=== PATIENT | male | born 1985 | race African-American/Black ===

== ENCOUNTER 2018-07-23 23:41 | Emergency (ER) | payer OTHER ==
[~2018-07-23] VITALS: Ht 180.3 cm; Wt 67.1 kg
[2018-07-24] MEDS ORDERED: Bacitracin Oint UD TOPIC ONE (00:15)
[2018-07-24] MEDS ORDERED: Lidocaine 1% MPF 10mg/ml 5ml INJ ONE (00:15)
--- NOTE | 2018-07-24 00:17 | NUR ---
ED Nurse Note: Received report. Pt from home, AAOx4, ambulatory, c/o right finger pain after picking up wine glass and it breaking in his hand. Will assess and carryout ER MD's orders.
[2018-07-24 00:18] VITALS: BP 118/76
--- NOTE | 2018-07-24 01:13 | Emergency Room Report ---
History of Present Illness General Chief Complaint: Laceration Source: Patient Present Illness HPI The patient presents with laceration of his finger. 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 Glass broke and he cut his fingertip. He wrapped it and continued his shift and now is presented after shift is over a period the bleeding was controlled with the dressing. This happened at 2130. The finger involved is his right index finger. The patient is right-handed. His tetanus is up-to-date. Patient denies any numbness or change in range of motion. The pain is rated 5/10 at this time. It's sharp pain nonradiating. Patient denies diabetes or other medical problems. Allergies: Coded Allergies: No Known Allergies (Unverified , 07/24/18) Patient History Past Medical History: see triage record Social History: Denies: smoking - Former smoker Social History Narrative retrofit installer Reviewed Nursing Documentation: PMH: Agreed; PSxH: Agreed Review of Systems Constitutional: Denies: fever Musculoskeletal: Reports: see HPI Skin: Reports: see HPI Neurological: Reports: see HPI Hematologic/Lymphatic: Reports: see HPI Physical Exam Vital Signs Date Time Temp Pulse Resp B/P (MAP) Pulse Ox O2 Delivery O2 Flow Rate FiO2 07/24/18 00:05 98.2 69 18 118/76 (90) 99 Room Air Sp02 EP Interpretation: reviewed, normal General Appearance: well appearing, no apparent distress, GCS 15 Head: normocephalic, atraumatic Eyes: bilateral eye normal inspection, bilateral eye PERRL ENT: hearing grossly normal, normal voice, moist mucus membranes Neck: full range of motion, supple Respiratory: no respiratory distress, speaking full sentences Cardiovascular #1: regular rate, rhythm Cardiovascular #2: 2+ femoral (R) - Good capillary refill Gastrointestinal: normal inspection Musculoskeletal: normal range of motion, no calf tenderness Neurologic: alert, motor strength/tone normal, sensory intact - Distal intact, normal gait Psychiatric: mood/affect normal Skin: no rash, laceration - Right index finger Procedures Laceration/Wound Repair Laceration/Wound Repair : Consent: Verbal Wound Location: upper extremity - Right index finger Wound's Depth, Shape: superficial, flap Wound Length (cm): 1 - 1.5 Wound Explored: clean Irrigated w/ Saline (ccs): 10 Betadine Prep?: Yes Anesthesia: 1% Lidocaine Volume Anesthetic (ccs): 0 - 0.5 Wound Debrided: minimal Wound Repaired With: sutures Suture Size/Type: 5:0 Layer Closure?: No Sterile Dressing Applied?: Yes Splint Applied?: No Patient Tolerated: Well Complications: None Medical Decision Making Diagnostic Impression: Primary Impression: Laceration of right index finger Qualified Codes: S61.210A - Laceration without foreign body of right index finger without damage to nail, initial encounter ER Course Patient presents with a right index finger laceration. This needs surgical repair. His tetanus is up-to-date. Patient declines Tylenol. See procedure note. Patient stable for outpatient observation and treatment. Discussed wound care with the patient. Last Vital Signs Date Time Temp Pulse Resp B/P (MAP) Pulse Ox O2 Delivery O2 Flow Rate FiO2 07/24/18 00:18 98.2 18 118/76 99 Room Air 07/24/18 00:05 69 Status: improved Disposition: HOME, SELF-CARE Condition: Improved Scripts Bacitracin (Bacitracin) 28.4 Gm Oint...g. 1 APPLIC TOPIC THREE TIMES A DAY, #10 GM Prov: Martin Ambrocio MD 07/24/18 Martin Ambrocio MD July 24, 2018 01:13
[2018-07-24] MEDS ORDERED: BACITRACIN15 GM TOPIC (01:17)
--- NOTE | 2018-07-24 01:23 | NUR ---
ED Nurse Note: Pt cleared by health care Provider for discharge. DC instructions/prescription was given and explained to pt and verbalized understanding of teachings. All medical deviecs such as ID band removed. Pt is AAO x4, ambulatory and left with all personal belongings.
== END 2018-07-24 01:23 | disposition home or self-care (01) ==
LOC: EMR 07-24 00:42
DX: S61.210A Laceration without foreign body of right index finger without damage to nail, initial encounter (principal); W25.XXXA Contact with sharp glass, initial encounter; Y92.511 Restaurant or cafe as the place of occurrence of the external cause; Y99.0 Civilian activity done for income or pay
CPT/HCPCS: 99283

== ENCOUNTER 2018-08-01 03:01 | Emergency (ER) | payer OTHER ==
[~2018-08-01] VITALS: Ht 180.3 cm; Wt 67.1 kg
[~2018-08-01 03:01] MED LIST: BACITRACIN15 GM TOPIC
[2018-08-01 03:13] VITALS: BP 133/79
--- NOTE | 2018-08-01 03:13 | NUR ---
ED Nurse Note: Pt arrived ED from home, c/o right the 2nd finger stich removal. Pt is A/O X 4. VSS.
[2018-08-01 03:37] VITALS: BP 132/78
--- NOTE | 2018-08-01 03:37 | NUR ---
ER DISCHARGE NOTE: Patient is cleared to be discharged per Dr. Mackay. 3 stiches removed. Pt is aox4 on room air with stable vital signs. Pt was given dc and prescription instructions and was able to verbalize understanding. Pt's ID band removed. Pt is able to ambulate well with steady gait and took all belongings.
--- NOTE | 2018-08-01 06:34 | Emergency Room Report ---
History of Present Illness General Chief Complaint: Wound Recheck/Suture Removal Source: Patient Present Illness HPI 33-year-old male ED for evaluation. Patient is here for suture removal. Patient had sutures placed 1 week ago. Patient denies any pain. Denies any discharge or redness. No other aggravating relieving factors. Denies any other associated symptoms Allergies: Coded Allergies: No Known Allergies (Unverified , 07/24/18) Patient History Past Medical History: none Past Surgical History: none Pertinent Family History: none Social History: Denies: smoking, alcohol use, drug use Immunizations: UTD Reviewed Nursing Documentation: PMH: Agreed; PSxH: Agreed Review of Systems All Other Systems: negative except mentioned in HPI Physical Exam Vital Signs Date Time Temp Pulse Resp B/P (MAP) Pulse Ox O2 Delivery O2 Flow Rate FiO2 08/01/18 03:07 98.1 59 17 133/79 (97) 95 Room Air Sp02 EP Interpretation: reviewed, normal General Appearance: no apparent distress, alert, GCS 15, non-toxic Head: normocephalic Eyes: bilateral eye normal inspection, bilateral eye PERRL ENT: normal ENT inspection Neck: normal inspection Respiratory: normal inspection Cardiovascular #1: normal inspection Gastrointestinal: normal inspection Rectal: deferred Genitourinary: no CVA tenderness Musculoskeletal: normal inspection Neurologic: alert, oriented x3, responsive, motor strength/tone normal, sensory intact, speech normal Psychiatric: normal inspection Skin: other - healing wound to R finger. sutures in place. no erythema/ induration Lymphatic: normal inspection Medical Decision Making Diagnostic Impression: Primary Impression: Encounter for removal of sutures ER Course Patient presents to the emergency department today for suture removal. patient' s wound appears well-healed, and sutures are ready to be removed today. Using sterile technique the sutures were removed patient tolerated procedure well without any difficulty. Patient was given advice how to care for the wound patient is advised followup with his private care doctor in 2-3 days and return to emergency room for any worsening conditions as needed Last Vital Signs Date Time Temp Pulse Resp B/P (MAP) Pulse Ox O2 Delivery O2 Flow Rate FiO2 08/01/18 03:37 98.1 76 17 132/78 95 Room Air Status: improved Disposition: HOME, SELF-CARE Condition: Stable Referrals: WOO HALL MD (PCP) [facility] Patient Instructions: Suture Removal, Care After Georgi Mackay MD Aug 01, 2018 06:34
== END 2018-08-01 03:37 | disposition home or self-care (01) ==
LOC: EMR 03:11
DX: Z48.02 Encounter for removal of sutures (principal)
CPT/HCPCS: 99282

== ENCOUNTER 2018-10-11 22:01 | Emergency (ER) | payer MEDICAID, OTHER ==
[~2018-10-11] VITALS: Ht 182.9 cm; Wt 63.5 kg
--- NOTE | 2018-10-11 22:07 | NUR ---
ED Nurse Note: pt walked in c/o chest pain since this afternoon, denies cough, denies other sx, pt denies any other recent injuries but reports he lifts heavy objects at work. vss, resp even and unlabored on RA, will cont monitor.
[2018-10-11 22:09] VITALS: BP 120/80
--- NOTE | 2018-10-11 22:21 | Emergency Room Report ---
History of Present Illness General Chief Complaint: Pain Source: Patient Present Illness HPI Presents with substernal chest pain. He says he feels that he is having difficulty swallowing. Is also central in his chest and worse when he does try to swallow. Does not feel it is exertional. In the past these had atypical chest pain with mitral valve prolapse being diagnosed. He denies any fevers or chills. There is no productive cough. He denies wheezing or dyspnea. He has not taken anything for the pain tonight. Rates the pain 6/10 and aching pressure. Risk factors vape but he denies all others. No fevers, chills, sore throat, palpitations, nausea, vomiting, diarrhea, dysuria, abdominal pain, shortness of breath, joint pain, rashes, depression, anxiety, visual changes, headache. Allergies: Coded Allergies: No Known Allergies (Unverified , 07/24/18) Patient History Past Medical History: see triage record Social History: Reports: smoking - Vape Social History Narrative telephone technician Reviewed Nursing Documentation: PMH: Agreed; PSxH: Agreed Nursing Documentation-PMH Past Medical History: No Stated History Review of Systems All Other Systems: negative except mentioned in HPI Physical Exam Vital Signs Date Time Temp Pulse Resp B/P (MAP) Pulse Ox O2 Delivery O2 Flow Rate FiO2 10/11/18 22:03 98.2 76 16 120/80 (93) 99 Room Air Sp02 EP Interpretation: reviewed, normal General Appearance: well appearing, no apparent distress, GCS 15 Head: normocephalic, atraumatic Eyes: bilateral eye normal inspection, bilateral eye PERRL, bilateral eye EOMI ENT: moist mucus membranes Neck: supple, tender - Anterior muscles Respiratory: chest non-tender, lungs clear, normal breath sounds Cardiovascular #1: regular rate, rhythm Cardiovascular #2: 2+ radial (R) Gastrointestinal: normal inspection, normal bowel sounds, non tender, no mass, non-distended Musculoskeletal: back normal, gait/station normal, normal range of motion Neurologic: alert, oriented x3, grossly normal Psychiatric: mood/affect normal Skin: no rash, normal color Medical Decision Making Diagnostic Impression: Primary Impression: Chest pain Qualified Codes: R07.9 - Chest pain, unspecified Additional Impression: Neck muscle spasm ER Course Patient presents with chest pain with few risk factors. Differential includes mitral valve prolapse, esophagitis, esophageal spasm, reflux, costochondritis amongst others. The patient will be evaluated with EKG and labs and a chest x- ray. The patient will receive IV Pepcid and Tylenol. EKG with normal sinus rhythm rate 64. J-point elevation with consideration of pericarditis. EKG looks more like early repolarization. Labs unremarkable. Chest x-ray clear. Patient still complains about pain mainly when he moves his head he has pain in his neck and also when he swallows there is pain in his neck. This is most consistent with muscular strain. Discussed results with patient. No medical emergency at this time. Patient stable for outpatient observation and treatment. Laboratory Tests Test 10/11/18 22:20 10/11/18 22:33 White Blood Count 9.4 K/UL (4.8-10.8) Red Blood Count 5.65 M/UL (4.70-6.10) Hemoglobin 16.1 G/DL (14.2-18.0) Hematocrit 47.8 % (42.0-52.0) Mean Corpuscular Volume 85 FL (80-99) Mean Corpuscular Hemoglobin 28.5 PG (27.0-31.0) Mean Corpuscular Hemoglobin Concent 33.6 G/DL (32.0-36.0) Red Cell Distribution Width 11.1 % (11.6-14.8) L Platelet Count 276 K/UL (150-450) Mean Platelet Volume 5.7 FL (6.5-10.1) L Neutrophils (%) (Auto) 69.9 % (45.0-75.0) Lymphocytes (%) (Auto) 24.2 % (20.0-45.0) Monocytes (%) (Auto) 3.5 % (1.0-10.0) Eosinophils (%) (Auto) 0.6 % (0.0-3.0) Basophils (%) (Auto) 1.9 % (0.0-2.0) Sodium Level 139 MMOL/L (136-145) Potassium Level 3.9 MMOL/L (3.5-5.1) Chloride Level 103 MMOL/L (98-107) Carbon Dioxide Level 27 MMOL/L (21-32) Anion Gap 9 mmol/L (5-15) Blood Urea Nitrogen 24 mg/dL (7-18) H Creatinine 1.2 MG/DL (0.55-1.30) Estimate Glomerular Filtration Rate > 60 mL/min (>60) Glucose Level 87 MG/DL (74-106) Calcium Level 10.2 MG/DL (8.5-10.1) H Total Bilirubin 0.9 MG/DL (0.2-1.0) Aspartate Amino Transferase (AST) 24 U/L (15-37) Alanine Aminotransferase (ALT) 31 U/L (12-78) Alkaline Phosphatase 66 U/L (46-116) Total Creatine Kinase 224 U/L (26-308) Troponin I 0.000 ng/mL (0.000-0.056) C-Reactive Protein, Quantitative < 0.4 mg/dL (0.00-0.90) Total Protein 8.1 G/DL (6.4-8.2) Albumin 4.6 G/DL (3.4-5.0) Globulin 3.5 g/dL Albumin/Globulin Ratio 1.3 (1.0-2.7) Erythrocyte Sedimentation Rate 2 MM/HR (0-15) EKG Diagnostic Results Rate: normal Rhythm: NSR ST Segments: no acute changes - J-point elevation Rhythm Strip Diag. Results EP Interpretation: yes Rhythm: NSR, no PVC's, no ectopy Chest X-Ray Diagnostic Results Chest X-Ray Diagnostic Results : Chest X-Ray Ordered: Yes # of Views/Limited/Complete: 1 View Indication: Chest Pain EP Interpretation: Yes Interpretation: no consolidation, no effusion, no pneumothorax Impression: No acute disease Electronically Signed by: Electronically signed by Martin Ambrocio MD Last Vital Signs Date Time Temp Pulse Resp B/P (MAP) Pulse Ox O2 Delivery O2 Flow Rate FiO2 10/12/18 00:35 97.8 76 16 118/86 99 Room Air Status: improved Disposition: HOME, SELF-CARE Condition: Improved Scripts Methocarbamol* (ROBAXIN*) 500 Mg Tablet 500 MG PO TID for muscle spasms, #10 TAB 0 Refills Prov: Martin Ambrocio MD 10/12/18 Tramadol Hcl* (ULTRAM*) 50 Mg Tablet 50 MG ORAL Q6H PRN for For Pain, #10 TAB 0 Refills Prov: Martin Ambrocio MD 10/12/18 Martin Ambrocio MD Oct 11, 2018 22:21
[2018-10-11] MEDS ORDERED: Acetaminophen 500mg (ES) tab ORAL ONE (22:30)
[2018-10-11 22:33] LABS: BASOPHILS % (AUTO) 1.9 % (0.0-2.0); EOSINOPHILS % (AUTO) 0.6 % (0.0-3.0); HEMATOCRIT 47.8 % (42.0-52.0); HEMOGLOBIN 16.1 G/DL (14.2-18.0); LYMPHOCYTES % (AUTO) 24.2 % (20.0-45.0); MEAN CORPUSCULAR VOLUME 85 FL (80-99); MONOCYTES % (AUTO) 3.5 % (1.0-10.0); NEUTROPHILS % (AUTO) 69.9 % (45.0-75.0); PLATELET COUNT 276 K/UL (150-450); RED BLOOD COUNT 5.65 M/UL (4.70-6.10); RED CELL DISTRIBUTION WIDTH 11.1 % (11.6-14.8); WHITE BLOOD COUNT 9.4 K/UL (4.8-10.8)
[2018-10-11 22:53] LABS: ANION GAP 9 mmol/L (5-15); BLOOD UREA NITROGEN 24 mg/dL (7-18); CALCIUM 10.2 MG/DL (8.5-10.1); CARBON DIOXIDE 27 MMOL/L (21-32); CHLORIDE 103 MMOL/L (98-107); CREATININE 1.2 MG/DL (0.55-1.30); POTASSIUM 3.9 MMOL/L (3.5-5.1); SODIUM 139 MMOL/L (136-145)
[2018-10-11 22:58] LABS: ALANINE AMINOTRANSFERASE 31 U/L (12-78); ALBUMIN 4.6 G/DL (3.4-5.0); ALBUMIN/GLOBULIN RATIO 1.3 (1.0-2.7); ALKALINE PHOSPHATASE 66 U/L (46-116); ASPARTATE AMINO TRANSFERASE 24 U/L (15-37); BILIRUBIN,TOTAL 0.9 MG/DL (0.2-1.0); CREATINE KINASE 224 U/L (26-308)
[2018-10-11 23:09] VITALS: BP 116/68
[2018-10-11] MEDS ORDERED: Mylanta II UD 30ml ORAL ONE (23:15)
--- NOTE | 2018-10-11 23:27 | Diagnostic Imaging Report ---
EXAM: XR Chest, 1 View CLINICAL HISTORY: CP TECHNIQUE: Frontal view of the chest. COMPARISON: none FINDINGS: Lungs: Unremarkable. No consolidation. Pleural space: Unremarkable. No pneumothorax. Heart: Unremarkable. No cardiomegaly. Mediastinum: Unremarkable. Bones/joints: Unremarkable. IMPRESSION: Normal chest x-ray.
[2018-10-12] VITALS: BP 108/76
[2018-10-12] MEDS ORDERED: TRAMADOL HCL50 MG ORAL (00:15)
[2018-10-12] MEDS ORDERED: ROBAXIN500 MG PO (00:15)
[2018-10-12 00:35] VITALS: BP 118/86
--- NOTE | 2018-10-12 00:35 | NUR ---
ED Nurse Note: pt cleared to be d/c per ERMD, pt discharge and aftercare instruction provided w/ prescription, pt education done via discussion and handout, pt advised to follow up with pcp or return to ed if changes in condition, vss, ambulatory w/ steady gait, iv d/c and id band removed, pt left w/ all belongings.
--- NOTE | 2018-10-14 11:10 | Cardiology Report ---
APPROVED REPORT EKG Measurement Heart [id number] Normal sinus rhythm ST elevation, consider early repolarization, pericarditis, or injury Abnormal ECG
== END 2018-10-12 00:35 | disposition home or self-care (01) ==
LOC: EMR 22:50
DX: R07.9 Chest pain, unspecified (principal); M62.838 Other muscle spasm; F17.200 Nicotine dependence, unspecified, uncomplicated
CPT/HCPCS: 36415; 71045; 80053; 82550; 84484; 85025; 85651; 86140; 93005; 96374; 99284; S0028

== ENCOUNTER 2019-03-27 23:03 | Emergency (ER) | payer MEDICAID ==
[~2019-03-27] VITALS: Ht 182.9 cm; Wt 70.3 kg
[~2019-03-27 23:03] MED LIST changes: +ROBAXIN500 MG PO; +TRAMADOL HCL50 MG ORAL
[2019-03-27] MEDS ORDERED: ADDERAL20 MG ORAL (23:12)
[2019-03-27 23:15] VITALS: BP 111/66
--- NOTE | 2019-03-27 23:15 | NUR ---
ED Nurse Note: Pt walked into ED c/o abdominal pain, nausea, vomiting and diarrhea since today at 1400. As per patient, he took pepto bismol and loperamide but doesnt help him at all. Afebrile. No episodes of vomiting at this time. Not in any distress. VSS.
--- NOTE | 2019-03-27 23:20 | NUR ---
ED Nurse Note: ERMD at bedside.
--- NOTE | 2019-03-27 23:25 | NUR ---
ED Nurse Note: IV line established. Blood and urine collected and sent to lab.
--- NOTE | 2019-03-27 23:30 | Emergency Room Report ---
History of Present Illness General Chief Complaint: Abdominal Pain Source: Patient Present Illness HPI Disclaimer: Please note that this report is being documented using [employer] technology. This can lead to erroneous entry secondary to incorrect interpretation by the dictating instrument. HPI: 34-year-old male presents for evaluation of abdominal pain. Symptoms began approximately 2 PM. He reports diffuse abdominal cramping, inability to hold down solids liquids or medications. Reports some diarrhea without hematochezia or melena. Denies fevers. Did report some chills. He has had a chronic cough for approximately 1 month, no change in the condition. Denies dysuria or hematuria. Denies rash. He tried taking Imodium, Pepto-Bismol, Maalox but was unable to hold down any of those medications. No new foods introduced recently, no new restaurants, no known sick contacts. No recent drug or alcohol use PMH: Denies PSH: Denies Allergies: Denies Social Hx: Occasional CBD for sleep, occasional nicotine vapor pen, denies alcohol Allergies: Coded Allergies: No Known Allergies (Unverified , 07/24/18) Nursing Documentation-PMH Past Medical History: No History, Except For Review of Systems All Other Systems: negative except mentioned in HPI Physical Exam Vital Signs Date Time Temp Pulse Resp B/P (MAP) Pulse Ox O2 Delivery O2 Flow Rate FiO2 03/27/19 23:09 98.4 96 22 111/66 (81) 98 Room Air General: Awake and alert, no acute distress HEENT: NC/AT. EOMI. Neck: Supple, trachea midline Chest Wall: No tenderness, no deformity Cardiovascular: RRR. S1 and S2 normal. No murmur appreciated Resp: Normal work of breathing. No cough, wheezing or crackles appreciated Abdomen: Abdomen is soft, nondistended. Mildly tender diffusely. No focal tenderness. No rebound. No masses. Skin: Intact. No abrasions, laceration or rash over the exposed skin MSK: Normal tone and bulk. Moving all extremities. No obvious deformity. Neuro: Awake and alert. Mentating appropriately. Medical Decision Making Diagnostic Impression: Primary Impression: Vomiting and diarrhea ER Course 34-year-old male presents for evaluation nausea vomiting and diarrhea beginning earlier today. Differential includes was not limited to gastroenteritis, gastritis, pancreatitis, cholecystitis, appendicitis, obstruction, diverticulitis, UTI, pyelonephritis to name a few. Overall, he is well- appearing and stable vital signs. Abdomen is mild tenderness diffusely. Little concern for appendicitis or other intra-abdominal pathology at this time. Likely a viral syndrome. Will start with IV hydration, antiemetics, screening labs. Advance work-up as needed. Laboratory Tests Test 03/27/19 23:25 White Blood Count 14.8 K/UL (4.8-10.8) H Red Blood Count 5.98 M/UL (4.70-6.10) Hemoglobin 17.8 G/DL (14.2-18.0) Hematocrit 50.7 % (42.0-52.0) Mean Corpuscular Volume 85 FL (80-99) Mean Corpuscular Hemoglobin 29.7 PG (27.0-31.0) Mean Corpuscular Hemoglobin Concent 35.1 G/DL (32.0-36.0) Red Cell Distribution Width 11.8 % (11.6-14.8) Platelet Count 284 K/UL (150-450) Mean Platelet Volume 6.1 FL (6.5-10.1) L Neutrophils (%) (Auto) % (45.0-75.0) Lymphocytes (%) (Auto) % (20.0-45.0) Monocytes (%) (Auto) % (1.0-10.0) Eosinophils (%) (Auto) % (0.0-3.0) Basophils (%) (Auto) % (0.0-2.0) Differential Total Cells Counted 100 Neutrophils % (Manual) 93 % (45-75) H Lymphocytes % (Manual) 2 % (20-45) L Monocytes % (Manual) 5 % (1-10) Eosinophils % (Manual) 0 % (0-3) Basophils % (Manual) 0 % (0-2) Band Neutrophils 0 % (0-8) Platelet Estimate Adequate Platelet Morphology Normal Urine Color Brown Urine Appearance Clear Urine pH 5 (4.5-8.0) Urine Specific [place] 1.025 (1.005-1.035) Urine Protein 2+ (NEGATIVE) H Urine Glucose (UA) Negative (NEGATIVE) Urine Ketones 4+ (NEGATIVE) H Urine Blood 1+ (NEGATIVE) H Urine Nitrite Negative (NEGATIVE) Urine Bilirubin Negative (NEGATIVE) Urine Urobilinogen 1 MG/DL (0.0-1.0) H Urine Leukocyte Esterase Negative (NEGATIVE) Urine RBC 2-4 /HPF (0 - 0) H Urine WBC 0-2 /HPF (0 - 0) Urine Squamous Epithelial Cells Occasional /LPF Urine Bacteria Few /HPF (NONE) Urine Mucus Few /LPF (NONE/OCC) H Sodium Level 144 MMOL/L (136-145) Potassium Level 4.3 MMOL/L (3.5-5.1) Chloride Level 108 MMOL/L (98-107) H Carbon Dioxide Level 23 MMOL/L (21-32) Anion Gap 13 mmol/L (5-15) Blood Urea Nitrogen 25 mg/dL (7-18) H Creatinine 1.1 MG/DL (0.55-1.30) Estimate Glomerular Filtration Rate > 60 mL/min (>60) Glucose Level 111 MG/DL (74-106) H Calcium Level 10.0 MG/DL (8.5-10.1) Total Bilirubin 1.1 MG/DL (0.2-1.0) H Direct Bilirubin 0.1 MG/DL (0.0-0.3) Aspartate Amino Transferase (AST) 23 U/L (15-37) Alanine Aminotransferase (ALT) 31 U/L (12-78) Alkaline Phosphatase 77 U/L (46-116) Total Protein 8.5 G/DL (6.4-8.2) H Albumin 4.6 G/DL (3.4-5.0) Globulin 3.9 g/dL Albumin/Globulin Ratio 1.2 (1.0-2.7) Lipase 90 U/L (73-393) Reevaluation Time: 01:06 Last Vital Signs Date Time Temp Pulse Resp B/P (MAP) Pulse Ox O2 Delivery O2 Flow Rate FiO2 03/27/19 23:09 98.4 96 22 111/66 (81) 98 Room Air Reevaluation Impression Labs unremarkable. Patient received IV fluids for no further emesis or diarrhea in the emergency department. Tolerating p.o. Likely a viral syndrome. Will discharge home with additional Zofran. Follow-up with his PMD. Discussed reasons to return to the emergency department. Understands and agrees with this treatment plan. Disposition: HOME, SELF-CARE Condition: Stable Scripts Ondansetron Odt* (ZOFRAN ODT*) 4 Mg Tab.rapdis 4 MG BC EVERY 6 HOURS PRN for Nausea & Vomiting, #10 TAB 0 Refills Prov: Marcin Murillo MD 03/28/19 Marcin Murillo MD Mar 27, 2019 23:30
[2019-03-27 23:48] LABS: APPEARANCE,URINE CLEAR; BILIRUBIN, URINE NEGATIVE (NEGATIVE); COLOR,URINE BROWN; GLUCOSE, URINE (UA) NEGATIVE (NEGATIVE); KETONES,URINE 4+ (NEGATIVE); LEUKOCYTE ESTERASE ,URINE NEGATIVE (NEGATIVE); NITRITE,URINE NEGATIVE (NEGATIVE); PH,URINE 5 (4.5-8.0); PROTEIN,URINE 2+ (NEGATIVE); UROBILINOGEN,URINE 1 MG/DL (0.0-1.0)
[2019-03-27 23:49] LABS: HEMATOCRIT 50.7 % (42.0-52.0); HEMOGLOBIN 17.8 G/DL (14.2-18.0); MEAN CORPUSCULAR VOLUME 85 FL (80-99); PLATELET COUNT 284 K/UL (150-450); RED BLOOD COUNT 5.98 M/UL (4.70-6.10); RED CELL DISTRIBUTION WIDTH 11.8 % (11.6-14.8); WHITE BLOOD COUNT 14.8 K/UL (4.8-10.8)
[2019-03-27 23:55] LABS: ANION GAP 13 mmol/L (5-15); BLOOD UREA NITROGEN 25 mg/dL (7-18); CARBON DIOXIDE 23 MMOL/L (21-32); CHLORIDE 108 MMOL/L (98-107); CREATININE 1.1 MG/DL (0.55-1.30); POTASSIUM 4.3 MMOL/L (3.5-5.1); SODIUM 144 MMOL/L (136-145)
[2019-03-28 00:07] LABS: ALANINE AMINOTRANSFERASE 31 U/L (12-78); ALBUMIN 4.6 G/DL (3.4-5.0); ALBUMIN/GLOBULIN RATIO 1.2 (1.0-2.7); ALKALINE PHOSPHATASE 77 U/L (46-116); ASPARTATE AMINO TRANSFERASE 23 U/L (15-37); BILIRUBIN,TOTAL 1.1 MG/DL (0.2-1.0)
[2019-03-28 00:08] LABS: BILIRUBIN,DIRECT 0.1 MG/DL (0.0-0.3)
[2019-03-28] MEDS ORDERED: ONDANSETRON ODT4 MG BC (01:05)
[2019-03-28 01:22] VITALS: BP 109/70
--- NOTE | 2019-03-28 01:22 | NUR ---
ED Nurse Note: Pt cleared by ERMD for discharge. DC instructions/prescription was given and explained to pt and verbalized understanding of teachings. All medical deviecs such as ID band and IV line removed. Pt is AAO x4, ambulatory and left with all personal belongings. Accompanied by his S/O.
== END 2019-03-28 01:22 | disposition home or self-care (01) ==
LOC: EMR 03-28 00:36
DX: R11.2 Nausea with vomiting, unspecified (principal); R19.7 Diarrhea, unspecified; R10.9 Unspecified abdominal pain
CPT/HCPCS: 36415; 80053; 81003; 82248; 83690; 85007; 85025; 96361; 96374; J2405; J7030; Z7502; 99284